=== PATIENT | female | born 1955 | race Caucasian/White ===

== ENCOUNTER → 2017-12-04 | Outpatient (CLI) | payer MEDICARE | LOC: MC.RAD 13:55 | DX: Z12.31 Encounter for screening mammogram for malignant neoplasm of breast (principal) ==

== ENCOUNTER → 2019-06-14 | Outpatient (CLI) | payer MEDICARE | LOC: MC.RAD 11:15 | DX: Z12.31 Encounter for screening mammogram for malignant neoplasm of breast (principal) ==